=== PATIENT | female | born 1960 ===

== ENCOUNTER 2018-05-30 13:21 | Emergency (ER) | payer OTHER ==
[~2018-05-30] VITALS: Ht 170.2 cm; Wt 90.7 kg
[2018-05-30] MEDS ORDERED: ATORVASTATIN CA10 MG (13:36)
[2018-05-30] MEDS ORDERED: SYNTHROID50 MCG (13:36)
[2018-05-30] MEDS ORDERED: ELAVIL (13:37)
[2018-05-30] MEDS ORDERED: NAPR500T14 (13:38)
[2018-05-30] MEDS ORDERED: TRAMADOL HCL50 MG (13:39)
[2018-05-30] MEDS ORDERED: NEURONTIN600 MG (13:39)
== END 2018-05-30 17:19 | disposition home or self-care (01) ==
LOC: ER 13:21
DX: S93.492A Sprain of other ligament of left ankle, initial encounter (principal); X50.0XXA Overexertion from strenuous movement or load, initial encounter; Y93.01 Activity, walking, marching and hiking; Y92.488 Other paved roadways as the place of occurrence of the external cause; Y99.8 Other external cause status